=== PATIENT | male | born 1985 | race Caucasian/White ===

== ENCOUNTER 2024-07-24 10:52 | Outpatient (AMB) | payer MEDICARE, MEDICAID, SELFPAY ==
--- NOTE | 2024-07-24 11:04 | A.SPINEOV_ITS ---
Intake Visit Reasons: compression fracture Intake Note: Mr. Hawkins is here today C/o low back pain. MRI disc brought Glass Cut Off Supervisor Required: No Assessment & Plan Assessment & Plan (1) Back pain: Code(s): M54.9 - Dorsalgia, unspecified Category: Medical Plan Dear Dr Lainez, Thank you for referring Mr Hawkins to our office today. He is a very nice 39-year-old gentleman who was involved in a fall down a flight of stairs back in 2017. At the time he sustained multiple injuries and has had ongoing problems with nerve problems in his left arm since that time. He has been worked up at [facility] and his cervical spine imaging apparently did not show anything that looks surgical. He has been trying to do just pain management etc.. Along the way he was complaining of midthoracic pain and ultimately underwent an x-ray and then subsequent MRI showing a chronic healed compression fracture of T9. He was sent today for an evaluation. His midthoracic pain is present when he is standing and walking and more recently it started to bother him when he is sitting as well. He takes Tylenol as needed. No myelopathic symptoms reported in the lower extremities. He does however have upper extremity weakness in his left hand which has been present since 2017. He also reports limitations with movement of his arm as well. PMH: High cholesterol, hypertension, diabetes with an A1c of 7.2, acid reflux, surgery on his right hand. Social hx: He does not smoke, he does eat edible marijuana every day and occasionally uses alcohol Medications: Lisinopril, ropinirole, pregabalin, atorvastatin, glimepiride, omeprazole Allergies: Duloxetine Physical exam: He is awake alert oriented no acute distress, here with his today, he is able to stand up out of the examining table walk out to the hallway with normal gait, tandem gait walking reveals no instability, Romberg test negative, strength and motor examination reveals he does have weakness of his left hand in the hand grasp as well as the left triceps and to some degree the left deltoid as well. He does demonstrate hyperreflexia clonus in his ankles and Morin's sign on the left hand. Imaging review: There is a thoracic MRI done at [facility] with what appears to be a very mild anterior wedge compression fracture at T9 which is healed, no STIR imaging to suggest that it is active. No spinal cord compression seen. Impression: 39-year-old gentleman with a fall about 8 years ago or so down a flight of stairs, has had on and off thoracic pain since that time, steadily getting worse. He has a healed T9 compression fracture that is no longer acute. I am not sure how to explain his pain as the rest of his thoracic MRI looks completely normal. It could be muscular. Either way it does not need surgery and can just follow along the usual conservative treatment plan pathways such as PT, injections etc.. 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 He was deemed nonoperative at [facility] but I told him if he wants us to take a look at his cervical spine I would be happy to review it if they would like to send me a disc. Thank you for allowing us to care for your patient. The total time spent with this visit with this patient was 45 minutes reviewing history, physical exam, thoracic imaging review, and implementation of treatment plan or further diagnostic testing Bola Paula MD,PhD [facility] Coding Level of Care Code New Pt Level 4 (47908) Diagnoses Back pain M54.9
--- OUTSIDE RECORDS SUMMARY | 2024-07-24 11:48 | XMS_ITS | Encounter Summary ---
Author Organization [facility] r Address [address] [place] [address] Phone Care Team Providers Care Staying Machine Operator Name Role Phone Caitlin Mckee MD Primary Care Provider [phone] Nargis Lainez DO Unavailable [phone] Reason for Visit * Reason Onset Date Comments Medication Question 06/15/2024 Encounter Details Date Type Department Care Team (Late st Contact Info) Description 06/15/2024 Telephone Neurology [address], [place] [phone] [place] [address] Medication Question Social History Tobacco Use Types Packs/Day Years Used Date Smoking Tobacco: Never Alcohol Use Standard Drinks/Week Comments Yes 0 (1 standard drink = 0.6 oz pur e alcohol) 2 drinks per week Sex and Gender Information Value Date Recorded Sex Assigned at Male 08/30/2022 2:29 PM EDT Gender Identity Male 11/13/2022 9:24 AM EDT Sexual Orientation Straight 09/18/2023 8: 48 AM EDT documented as of this encounter Miscellaneous Notes * Telephone Encounter - Delia Moreira - 06/23/2024 10:06 AM EDT Patient Reported Reason for Call Patient presents with Medication Question Fact Finding Questions Medication name/use: pregabalin (LYRICA) 150 MG capsule Question about medication: Pharmacy is req more history of prior dosage, also ins is rejecting diclofenac-misoprostoL (ARTHROTEC 50) 50-200 mg-mcg per tablet [facility] at [phone] following up regarding medication question Confirm this is correct dose and instruction due to the high ml and times they take med a day Informed caller of advised tat * Telephone Encounter - Dulce Gomez - 06/16/2024 10:30 AM EST Patient Reported Reason for Call Patient presents with Medication Question Fact Finding Questions Medication name/use: pregabalin (LYRICA) 150 MG capsule Question about medication: Pharmacy is req more history of prior dosage, also ins is rejecting diclofenac-misoprostoL (ARTHROTEC 50) 50-200 mg-mcg per tablet [facility] pharmacy called again regarding the received prescription order for medication pregabalin (LYRICA) 150 MG capsule. The pharmacy requested additonal information about the medicatoin but hasnt heard back from the doctors office. The pharmacy checked the database and it shows the patient picked up the medication on 09/24/2022 and after that there is no record of the medication. Pharmacy would like to know if the patient was receiving the medication elsewhere. Please contact the pharmacy at [phone] (Shared the message was sent 06/15 and 48-72hr TAT per guidelines) * Telephone Encounter - Bobbi Nazario - 06/15/2024 9:58 AM EST Patient Reported Reason for Call Patient presents with Medication Question Fact Finding Questions Medication name/use: pregabalin (LYRICA) 150 MG capsule Question about medication: Pharmacy is req more history of prior dosage, also ins is rejecting diclofenac-misoprostoL (ARTHROTEC 50) 50-200 mg-mcg per tablet documented in this encounter Plan of Treatment Upcoming Encounters Date Type Department Care Team (Late st Contact Info) Description 07/31/2024 1:30 PM EDT Appointment Department of Radiology [address] [place] [address] [phone] 08/03/2024 10:50 AM EDT Office Visit Neurology [address] [facility] [address] [place] [phone] [place] [address] 10/01/2024 3:50 PM EDT Telemedicine Department of Otolaryngology 8[address] [facility] [address] [place] [phone] [place] [address] documented as of this encounter Visit Diagnoses Not on filedocumented in this encounter Care Teams Staying Machine Operator Relationship Specialty Start Date End Date Caitlin Mckee MD [address] [place] [phone] PCP - General Family Medicine 05/20/20 Nargis Lainez DO [address] [place] [phone] PCP - Insurance 02/04/23 documented as of this encounter
--- OUTSIDE RECORDS SUMMARY | 2024-07-24 11:48 | XMS_ITS | Encounter Summary ---
Author Organization [facility] r Address [address] [place] [address] Phone Care Team Providers Care Table Games Supervisor Name Role Phone Caitlin Mckee MD Primary Care Provider [phone] Nargis Lainez DO Unavailable [phone] Reason for Visit * Reason Onset Date Comments Prior Authorization 06/18/2024 diclofenac-m isoprostoL (ARTHROTEC 50) 50-200 mg- mcg per tablet and pregabalin (LYRICA) 150 MG capsule Encounter Details Date Type Department Care Team (Late st Contact Info) Description 06/18/2024 Telephone Neurology [address] [place] [address] [place] [address] Prior Authorization (diclofenac-misoprostoL (ARTHROTEC 50) 50-200 mg-mcg per tablet and /pregabalin (LYRICA) 150 MG capsule//) Social History Tobacco Use Types Packs/Day Years [...] encounter Miscellaneous Notes * Telephone Encounter - Roopa Trujilloro - 06/18/2024 2:53 PM EST Patient Reported Reason for Call Patient presents with Prior Authorization diclofenac-misoprostoL (ARTHROTEC 50) 50-200 mg-mcg per tablet and pregabalin (LYRICA) 150 MG capsule Fact Finding Questions Medication requesting: diclofenac-misoprostoL (ARTHROTEC 50) 50-200 mg-mcg per tablet and pregabalin (LYRICA) 150 MG capsule Medication insurance company: E-MEDICARE/MEDICARE A[employer]B Pharmacy Name/Location: [facility] [address] [place], [place] [address] [address] [place] [address] [place] [address], [facility] [id number] Best call back number: Fax: [phone] Permission to leave a detailed message: Yes Patient called stated Pharmacy mentioned Med diclofenac-misoprostoL (ARTHROTEC 50) 50-200 mg-mcg per tablet Prior Auth and pregabalin (LYRICA) 150 MG capsule require require history. Please reach out to patient adv resolution @ [phone] .Thank you Tat Adv documented in this encounter Plan of Treatment Upcoming Encounters Date Type Department Care Team (Late st Contact Info) Description 07/31/2024 1:30 PM EDT Appointment Department of Radiology [address] [place] [address] 08/03/2024 10:50 AM EDT Office Visit Neurology 725 [facility] [place] [phone] [place] [address] 10/01/2024 3:50 PM EDT Telemedicine Department of Otolaryngology 830 [facility] [address] [place] [phone] [place] [address] documented as of this encounter Visit Diagnoses Not on filedocumented in this encounter Care Teams Table Games Supervisor Relationship Specialty Start Date End Date Caitlin Mckee MD [address] [place] [address] PCP - General Family Medicine 05/20/20 Nargis Lainez DO [address] [place] [phone] PCP - Insurance 02/04/23 documented as of this encounter
--- OUTSIDE RECORDS SUMMARY | 2024-07-24 11:48 | XMS_ITS | Clinical Summary ---
Author Organization [facility] r Address [address] [facility] [place] [address] Phone Care Team Providers Care Finance Mgr Name Role Phone Caitlin Mckee MD Primary Care Provider [phone] Nargis Lainez DO Unavailable [phone] Allergies Active Allergy Reactions Criticality Noted Date Comments Duloxetine Other (See Comments) High 01/23/2021 Phlebitis. Blood clots in Feet Medications Medication Sig Dispensed Refills Start Date End Date Status BOTOX 100 unit injection INJECT UPTO 400 UNITS INTRAMUSCULARLY ONCE EVERY 3 MONTHS DIRECTED. 3 each 3 08/29/2021 Active hydroCHLOROthiaz patricia (HYDRODIURIL) 50 mg tablet Take 50 mg by mouth daily. Active lisinopriL (PRINIVIL;ZESTRI L) 10 mg tablet Take 10 mg by mouth daily. Active omeprazole (PRILOSEC) 10 mg capsule Take 20 mg by mouth daily. Swallow capsules whole; do not chew, break or empty contents of the capsule. Active atorvastatin (LIPITOR) 10 mg tablet Take 10 mg by mouth daily. Active sertraline (ZOLOFT) 100 mg tablet Take 150 mg by mouth in the morning. Active pregabalin (LYRICA) 100 MG capsule 1 tab PO TID PRN- may cause sedation 90 capsule 5 06/15/2022 Active pramipexole (MIRAPEX) 0.5 MG tablet Take 1 tablet (0.5 mg total) by mouth 3 (three) times a day. 90 tablet 2 12/04/2022 Active CERVICAL COLLAR Use every night for neck spasm 1 each 1 12/04/2022 Active traMADoL (ULTRAM) 50 mg tablet Take 1 tablet (50 mg total) by mouth every 6 (six) hours as needed for pain for up to 30 days. Do NOT exceed 400 mg/day. 60 tablet 02/04/2023 Active glimepiride (AMARYL) 1 MG tablet Take 1 tablet by mouth daily. 12/03/2023 Active pregabalin (LYRICA) 150 MG capsule Take 1 capsule (150 mg total) by mouth 3 (three) times a day for 30 days. 90 capsule 3 06/15/2024 Active diclofenac-misop rostoL (ARTHROTEC 50) 50-200 mg-mcg per tablet Take 1 tablet by mouth 2 (two) times a day for 90 days. 60 tablet 2 06/15/2024 Active Active Problems Problem Noted Date Diagnosed Date Cervical radiculitis 08/22/2023 Cervical dystonia 05/24/2021 Encounters Date Type Department Care Team Description 06/24/20[address] [place] [phone] Eleazar Quick MD Medication Question (Pharmacy) 06/18/20[address] [place] [phone] Eleazar Quick MD Prior Authorization (diclofenac-misoprost oL (ARTHROTEC 50) 50-200 mg-mcg per tablet and /pregabalin (LYRICA) 150 MG capsule//) 06/16/2024 Telephone [address] [place] [phone] Anamaria Jimenez CPhT Prior Authorization (Diclofenac-miSOPROSt ol 50-0.2MG dr tablets) 06/16/2024 Telephone Neurology [address] [place] [phone] Anamaria Jimenez CPhT Prior Authorization (Pregabalin 150MG capsules) 06/16/2024 Telephone [address]rology [address] [place] [phone] Eleazar Quick MD Encounter Not Needed 06/15/2024 9:50 AM EST - 06/15/2024 11:59 PM EST Hospital Encounter [facility] Care [address] [address] Eleazar Quick MD Cervical radiculopathy Discharge Disposition: Home or Self Care 06/15/2024 9:10 AM EST Office Visit Neurology [address] [place] [phone] Eleazar Quick MD Cervical radiculopathy (Primary Dx) 06/15/2024 Telephone Neurology [address] [place] [phone] Eleazar Quick MD Medication Question 06/15/2024 Telephone [address] [place] [phone] Eleazar Quick MD from Last 3 Months Immunizations Name Administration Dates Next Due Covid-19 Vaccine, ([employer]), mRNA, LNP-s, intramuscular pf injection (0.3 mL dose) 06/07/2021,01/05/2021,12/15/2020 Family History Medical History Relation Name Comments Diabetes Mellitus Father Hemochromatosis Father Diabetes Mellitus Mother Relation Name Status Comments Father Mother Social History Tobacco Use Types Packs/Day Years Used Date Smoking Tobacco: Never Tobacco Cessation:Counseling Given: Not Answered Alcohol Use Standard Drinks/Week Comments Yes 0 (1 standard drink = 0.6 oz pur e alcohol) 2 drinks per week Sex and Gender Information Value Date Recorded Sex Assigned at Male 08/30/2022 2:29 PM EDT Gender Identity Male 11/13/2022 9:24 AM EDT Sexual Orientation Straight 09/18/2023 8: 48 AM EDT Last Filed Vital Signs Vital Sign Reading Time Taken Comments Blood Pressure 160/111 06/15/2024 8:47 AM EST Pulse 115 06/15/2024 8:47 AM EST Temperature 36.7 ??C (98 ??F) 06/15/2024 8:47 AM EST Respiratory Rate 16 09/18/2023 9:20 AM EDT Oxygen Saturation 98% 06/15/2024 8:47 AM EST Inhaled Oxygen Concentration - - Weight 116.7 kg (257 lb 3.2 oz) 06/15/2024 8:47 AM EST Height 182 cm (5' 11.65 ) 12/03/2023 1:05 PM EDT Body Mass Index 35.22 12/03/2023 1:05 PM EDT Plan of Treatment Upcoming Encounters Date Type Department Care Team (Late st Contact Info) Description 07/31/2024 1:30 PM EDT Appointment Department of Radiology [address] [place] [address] 08/03/2024 10:50 AM EDT Office Visit Neurology 725 [facility] [address] [place] [phone] [place] [address] 10/01/2024 3:50 PM EDT Telemedicine Department of Otolaryngology 830 [facility] [address] [place] [phone] [place] [address] Health Maintenance Due Date Last Done Comments LIPID PANEL 1984 THRIVE SCREENING 1984 Oral Health Screen 1984 HEIP Disability Screen 1989 BEHAVIORAL HEALTH SCREEN 1996 Psych Substance Use Screen 1996 DTAP/TDAP VACCINE (1 - Tdap) 2003 Diabetes Screening 10/13/2023 10/12/2020 COVID-19 Vaccine ( season) 2023 06/07/2021, 01/05/2021, 12/15/2020 INFLUENZA VACCINE (#1) 2023 , 02/08/2022, 06/17/2020, Additional history exists Zoster Vaccine (1 of 2) 2034 Hepatitis B sAg Lifetime Screening Completed 09/23/2018 Hepatitis C Antibody Lifetime Screening Completed 09/23/2018 HIV Lifetime Screening Completed 10/12/2020, 2018 HPV VACCINES Aged Out No longer eligi ble based on patient's age to complete this topic IPV VACCINES Aged Out No longer eligi ble based on patient's age to complete this topic Pneumonia Vaccine 0-64 Aged Out No lo nger eligible based on patient's age to complete this topic ROTAVIRUS VACCINES Aged Out No longer eligible based on patient's age to complete this topic Procedures Procedure Name Priority Date/Time Associated Diagnosis Comments XR THORACIC SPINE AP AND LATERAL Routine 06/15/2024 10:00 AM EST Cervical radiculopathy HEMOGLOBIN A1C Routine 10/12/2020 10:17 AM EDT Nerve pain HIV-1/2 AG/AB INITIAL SCREENING 10/12/2020 10:17 AM EDT HEPATITIS B SURFACE ANTIGEN Routine 09/23/2018 8:47 AM EDT Procreative management HCV AB REFLEX TO CONFIRMATORY/VIRAL LOAD AND GENOTYPE Routine 09/23/2018 8:47 AM EDT Procreative management from Last 3 Months or Most Recently Relevant to Health Maintenance Results * XR Thoracic Spine, 2 Views AP and Lateral (06/15/2024 10:00 AM EST) [facility] PATIENT HEIGHT 182 GE RIS-IC [facility] PATIENT WEIGHT 116.665 GE RIS-IC Anatomical Region Laterality Modality Spine Computed Radiogr aphy 06/19/2024 11:3 6 AM EST Impressions 06/19/2024 11:38 AM EST FINDINGS/IMPRESSION: The upper thoracic spine is obscured by overlying soft tissues on lateral view. Vertebral body heights are preserved. No displaced fracture. Normal vertebral alignment. Intervertebral disc spaces are preserved. Small multilevel marginal osteophytes. Soft tissues are unremarkable. Imaged lungs are clear. I personally reviewed the study and agree with the dictated report. Electronically signed by: Lm Serrato Signed date and time: 06/19/2024 11:38 AM Narrative 06/19/2024 11:38 AM EST EXAMINATION: XR THORACIC SPINE AP AND LATERAL: 06/15/2024 10:00 AM HISTORY: mid thoracic pain following injury in past. COMPARISON: None listed. TECHNIQUE: Frontal and lateral views. Procedure Note Lm Serrato MD - 06/19/2024 EXAMINATION: XR THORACIC SPINE AP AND LATERAL: 06/15/2024 10:00 AM HISTORY: mid thoracic pain following injury in past. COMPARISON: None listed. TECHNIQUE: Frontal and lateral views. IMPRESSION: FINDINGS/IMPRESSION: The upper thoracic spine is obscured by overlying soft tissues on lateralview. Vertebral body heights are preserved. No displaced fracture. Normal vertebral alignment. Intervertebral disc spaces are preserved. Small multilevel marginalosteophytes. Soft tissues are unremarkable. Imaged lungs are clear. I personally reviewed the study and agree with the dictated report. Electronically signed by: Lm Serrato Signed date and time: 06/19/2024 11:38 AM Eleazar Quick MD IMG DIAGNOSTIC IMAG ING ORDERABLES * HIV-1/2 AG/AB Initial Screening (10/12/2020 10:17 AM EDT) HIV Ag/Ab Combined Qualitative NON-REACTI VE NON-REACT GABE 10/12/2020 2:41 PM EDT [facility] 10/12/2020 10:1 7 AM EDT 10/12/2020 10:19 AM EDT Ayana Melgar DO LAB BLOOD ORDER [facility] CLIA [id number] [address] [facility] [address] * (ABNORMAL) Hemoglobin a1c (10/12/2020 10:17 AM EDT) Hemoglobin A1C 7.3(H) 4.0 - 6.0 % 10/12/2020 2:45 PM EDT [facility] Comment:The Mendoza hemoglobi n A1c assay should not be used to diagnose or monitor diabetes in patients with altered red cell lifespan, such as homozygous hemoglobin variants, Hb SC, HbF > 5%, and hemolytic anemia. 10/12/2020 10:1 7 AM EDT 10/12/2020 10:19 AM EDT Ayana Melgar DO LAB BLOOD ORDER [facility] CLIA [id number] [address] * HCV Ab reflex to Confirmatory/Viral load and Genotype (09/23/2018 8:47 AM EDT) Hepatitis C Antibody NON-REACTI VE NON-REACTI VE 09/23/2018 10:21 AM EDT [facility] 09/23/2018 8:47 AM EDT 09/23/2018 8:49 AM EDT Laura Moyer MD LAB BLOOD ORDERABLES [facility]<9>CLIA [id number]<9>[place] [address], * HEPATITIS B SURFACE ANTIGEN (09/23/2018 8:47 AM EDT) Hep B Surface Ag NON-REACTI VE NON-REACTI VE 09/23/2018 10:21 AM EDT [facility] 09/23/2018 8:47 AM EDT 09/23/2018 8:49 AM EDT Laura Moyer MD LAB BLOOD ORDERABLES [facility]<9>CLIA [id number]<9>One [address] from Last 3 Months or Most Recently Relevant to Health Maintenance Care Teams Finance Mgr Relationship Specialty Start Date End Date Caitlin Mckee MD [address] [place] [phone] PCP - General Family Medicine 05/20/20 Nargis Lainez DO [address] [place] [phone] PCP - Insurance 02/04/23
--- OUTSIDE RECORDS SUMMARY | 2024-07-24 11:48 | XMS_ITS | Encounter Summary ---
Author Organization [facility] r Address [address] [place] [address] Phone Care Team Providers Care Edge Worker Name Role Phone Caitlin Mckee MD Unavailable [phone] Caitlin Mckee MD Primary Care Provider [phone] Janice Sloan MD Unavailable [phone] Nargis Lainez DO Unavailable [phone] Reason for Visit * Reason Onset Date Comments Medication Refill 03/19/2022 Encounter Details Date Type Department Care Team (Late st Contact Info) Description 03/19/2022 Telephone Neurology [address] [place] [address], [place] [phone] Ayana Melgar DO Medication Refill Social History Tobacco Use Types Packs/Day Years Used Date Smoking Tobacco: Never Cigarettes Alcohol Use Standard Drinks/Week Comments Yes 0 (1 standard drink = 0.6 oz pur e alcohol) 2 drinks per week Sex and Gender Information Value Date Recorded Sex Assigned at Male 08/30/2022 2:29 PM EDT Gender Identity Male 11/13/2022 9:24 AM EDT Sexual Orientation Straight 09/18/2023 8: 48 AM EDT documented as of this encounter Plan of Treatment Upcoming Encounters Date Type Department Care Team (Late st Contact Info) Description 07/31/2024 1:30 PM EDT Appointment Department of Radiology [address] [place] [phone] 08/03/2024 10:50 AM EDT Office Visit Neurology [address] [place] [address], [place] [phone] [place] [address] 10/01/2024 3:50 PM EDT Telemedicine Department of Otolaryngology [address] [place] [phone] [place] [address] documented as of this encounter Visit Diagnoses Not on filedocumented in this encounter Care Teams Edge Worker Relationship Specialty Start Date End Date Caitlin Mckee MD [address] [place] [phone] PCP - Insurance 12/12/17 08/29/22 Caitlin Mckee MD [address] [place] [phone] PCP - General Family Medicine 05/20/20 Janice Sloan MD [address] [place] [phone] PCP - Insurance 08/30/22 02/03/23 Nargis Lainez DO [address] [place] [phone] PCP - Insurance 02/04/23 documented as of this encounter
--- OUTSIDE RECORDS SUMMARY | 2024-07-24 11:48 | XMS_ITS | Referral Summary ---
Author Organization [facility] r Address 1 [place] [address] Phone Care Team Providers Care Clinical Support Specialist Name Role Phone Caitlin Mckee MD Primary Care Provider [phone] Nargis Lainez DO Unavailable [phone] Encounters Date Type Department Care Team Description 06/24/2024 Telephone [address] [place] [address] [phone] Eleazar Quick MD Medication Question (Pharmacy) 06/18/2024 Telephone [address] [place] [address] [phone] Eleazar Quick MD Prior Authorization (diclofenac-misoprost oL (ARTHROTEC 50) 50-200 mg-mcg per tablet and /pregabalin (LYRICA) 150 MG capsule//) 06/16/2024 Telephone Neurology [address] [place] [address] [phone] Anamaria Jimenez CPhT Prior Authorization (Diclofenac-miSOPROSt ol 50-0.2MG dr tablets) 06/16/2024 Telephone Neurology [address] [place] [address] [phone] Anamaria Jimenez CPhT Prior Authorization (Pregabalin 150MG capsules) 06/16/2024 Telephone Neurology [address] [place] [address] [phone] Eleazar Quick MD Encounter Not Needed 06/15/2024 Telephone Neurology [address] [place] [phone] Eleazar Quick MD Medication Question 06/15/2024 Telephone Neurology [address] [place] [phone] Eleazar Quick MD 06/15/2024 9:50 AM EST - 06/15/2024 11:59 PM EST Hospital Encounter [facility] [address] [address] Eleazar Quick MD Cervical radiculopathy Discharge Disposition: Home or Self Care 06/15/2024 9:10 AM EST Office Visit Neurology [address] [place] [phone] Eleazar Quick MD Cervical radiculopathy (Primary Dx) from Last 3 Months Allergies Active Allergy Reactions Criticality Noted Date [...] Date Cervical radiculitis 08/22/2023 Cervical dystonia 05/24/2021 Immunizations Name Administration Dates Next Due Covid-19 Vaccine, (Surefire Social), mRNA, LNP-s, intramuscular pf injection (0.3 mL dose) 06/07/2021,01/05/2021,12/15/2020 Social History Tobacco Use Types Packs/Day Years [...] PM EDT Appointment Department of Radiology [address] [place] [address] 08/03/2024 10:50 AM EDT Office Visit Neurology [address] [facility], [place] [phone] [place] [address] 10/01/2024 3:50 PM EDT Telemedicine Department of Otolaryngology [address] [facility] [address] [place] [phone] [place] [address] Procedures Procedure Name Priority Date/Time Associated Diagnosis [...] AP and Lateral (06/15/2024 10:00 AM EST) [facility] PATIENT HEIGHT 182 GE RIS-IC [facility] PATIENT WEIGHT 116.665 GE RIS-IC Anatomical Region [...] VE NON-REACT GABE 10/12/2020 2:41 PM EDT [facility] 10/12/2020 10:1 7 AM EDT 10/12/2020 10:19 AM EDT Ayana Melgar DO LAB BLOOD ORDER JOVANNA [facility] CLIA [id number] [place] [address], * (ABNORMAL) Hemoglobin a1c (10/12/2020 10:17 AM EDT) Hemoglobin A1C 7.3(H) 4.0 - 6.0 % 10/12/2020 2:45 PM EDT [facility]via Comment:The Mendoza hemoglobi n A1c assay should not be used to diagnose or monitor diabetes in patients with altered red cell lifespan, such as homozygous hemoglobin variants, Hb SC, HbF > 5%, and hemolytic anemia. 10/12/2020 10:1 7 AM EDT 10/12/2020 10:19 AM EDT Ayana Melgar DO LAB BLOOD ORDER JOVANNA Performing Organization Address [facility]/ZIP Co de Phone Number [facility] CLIA [id number] [place] [address], * HCV Ab reflex to Confirmatory/Viral load and Genotype (09/23/2018 8:47 AM EDT) Pathologist [facility] [place] Hepatitis C Antibody NON-REACTI VE NON-REACTI VE 09/23/2018 10:21 AM EDT [facility]via 09/23/2018 8:47 AM EDT 09/23/2018 8:49 AM EDT Laura Moyer MD LAB BLOOD ORDERABLES Performing Organization Address [facility]/ZIP Co de Phone Number [facility]<9>CLIA [id number]<9>[place] [address], [place] * HEPATITIS B SURFACE ANTIGEN (09/23/2018 8:47 AM EDT) Hep B Surface Ag NON-REACTI VE NON-REACTI VE 09/23/2018 10:21 AM EDT [facility] 09/23/2018 8:47 AM EDT 09/23/2018 8:49 AM EDT Laura Moyer MD LAB BLOOD ORDERABLES [facility]<9>CLIA [id number]<9>[address] [facility] [address] from Last 3 Months or Most Recently Relevant to Health Maintenance Care Teams Clinical Support Specialist Relationship Specialty Start Date End Date Caitlin Mckee MD [address] [place] [phone] PCP - General Family Medicine 05/20/20 Nargis Lainez DO [address] [place] [phone] PCP - Insurance 02/04/23
--- OUTSIDE RECORDS SUMMARY | 2024-07-24 11:48 | XMS_ITS | Encounter Summary ---
Author Organization [facility] r Address 1 [place] [address] Phone Care Team Providers Care Wide Area Network Administrator Name Role Phone Caitlin Mckee MD Unavailable Caitlin Mckee MD Primary Care Provider [phone] Janice Sloan MD Unavailable [phone] Nargis Lainez DO Unavailable [phone] Encounter Details Date Type Department Care Team (Late st Contact Info) Description 09/05/2021 Documentation [facility] DEPARTMENT [address] [place] [address] Onbase, Scan Social History Tobacco Use Types Packs/Day Years [...] PM EDT Appointment Department of Radiology [address] [place] [address] 08/03/2024 10:50 AM EDT Office Visit Neurology [address] [place] [address] [place] [phone] [place] [address] 10/01/2024 3:50 PM EDT Telemedicine Department of Otolaryngology [address] [place] [phone] Judy Odonnell MD [address] [facility] [place] [address] documented as of this encounter Visit Diagnoses Not on filedocumented in this encounter Care Teams Wide Area Network Administrator Relationship Specialty Start Date End Date Caitlin Mckee MD [address] [place] [phone] PCP - Insurance 12/12/17 08/29/22 Caitlin Mckee MD [address] [place] [address] PCP - General Family Medicine 05/20/20 Janice Sloan MD [address] [place] [phone] PCP - Insurance 08/30/22 02/03/23 Nargis Lainez DO [address] [place] [phone] PCP - Insurance 02/04/23 documented as of this encounter
--- OUTSIDE RECORDS SUMMARY | 2024-07-24 11:48 | XMS_ITS | Encounter Summary ---
Author Organization [facility] r Address 1 [place] [address] Phone Care Team Providers Care Splitting Machine Operator Name Role Phone Caitlin Mckee MD Unavailable [phone] Caitlin Mckee MD Primary Care Provider Janice Sloan MD Unavailable [phone] Nargis Lainez DO Unavailable [phone] Reason for Visit * Reason Comments Automated Refill Request Encounter Details Date Type Department Care Team (Late st Contact Info) Description 03/19/2022 Refill Neurology [address], [place] [address] Ayana Melgar DO Social History Tobacco Use Types Packs/Day Years [...] 1:30 PM EDT Appointment Department of Radiology 0 [place] [address] 08/03/2024 10:50 AM EDT Office Visit Neurology [address], [place] [address] [place] [address] 10/01/2024 3:50 PM EDT Telemedicine Department of Otolaryngology [address] [place] [phone] [place] [address] documented as of this encounter Visit Diagnoses Not on filedocumented in this encounter Care Teams Splitting Machine Operator Relationship Specialty Start Date End Date Caitlin Mckee MD [address] [place] [phone] PCP - Insurance 12/12/17 08/29/22 Caitlin Mckee MD [address] [place] [phone] PCP - General Family Medicine 05/20/20 Janice Sloan MD [address] [place] [phone] PCP - Insurance 08/30/22 02/03/23 Nargis Lainez DO [address] [place] [phone] PCP - Insurance 02/04/23 documented as of this encounter
--- OUTSIDE RECORDS SUMMARY | 2024-07-24 11:48 | XMS_ITS | Encounter Summary ---
Author Organization [facility] r Address 1 [place] [address] Phone Care Team Providers Care Community Service Officer Name Role Phone Caitlin Mckee MD Primary Care Provider [phone] Nargis Lainez DO Unavailable [phone] Encounter Details Date Type Department Care Team (Late st Contact Info) Description 06/15/2024 Telephone Neurology [address], [place] [phone] [place] [address] Social History Tobacco Use Types Packs/Day Years [...] 1:30 PM EDT Appointment Department of Radiology [address] [place] [address] 08/03/2024 10:50 AM EDT Office Visit Neurology [address], [place] [phone] [place] [address] 10/01/2024 3:50 PM EDT Telemedicine Department of Otolaryngology [address] [place] [phone] [place] [address] documented as of this encounter Visit Diagnoses Not on filedocumented in this encounter Care Teams Community Service Officer Relationship Specialty Start Date End Date Caitlin Mckee MD 16 [place] [phone] PCP - General Family Medicine 05/20/20 Nargis Lainez DO [address] [place] [phone] PCP - Insurance 02/04/23 documented as of this encounter
--- OUTSIDE RECORDS SUMMARY | 2024-07-24 11:49 | XMS_ITS | Encounter Summary ---
Author Organization [facility] r Address [address] [facility] [place] [address] Phone Care Team Providers Care Lathe Sander Name Role Phone Caitlin Mckee MD Unavailable [phone] Caitlin Mckee MD Primary Care Provider [phone] Janice Sloan MD Unavailable [phone] Nargis Lainez DO Unavailable [phone] Reason for Visit * Reason Onset Date Comments Medication Refill 06/06/2022 Encounter Details Date Type Department Care Team (Late st Contact Info) Description 06/06/2022 Refill Neurology [address], [place] [address] Ayana Melgar DO Social History [...] Orientation Straight 09/18/2023 8: 48 AM EDT COVID-19 Exposure Response Date Recorded In the last 10 days, have yo u been in contact with someone who was confirmed or suspected to have Coronavirus/COVID-19? No / Unsure 05/11/2022 7:01 AM EST documented as of this encounter Miscellaneous Notes * Telephone Encounter - Bola Landin MD - 06/12/2022 4:56 PM EST See movement group for dystonia botox. thanks * Telephone Encounter - Jennifer Canales RN - 06/12/2022 8:18 AM EST Patient's last office visit: 05/11/22 Scheduled appointment: 06/25/22 Will forward to provider for review. Per last visit note -Referral to Dr. Landin in the pain division for potential other interventions and/or medication management. documented in this encounter Plan of Treatment Upcoming Encounters Date Type Department Care Team (Late st Contact Info) Description 07/31/2024 1:30 PM EDT Appointment Department of Radiology [address] [place] [address] 08/03/2024 10:50 AM EDT Office Visit Neurology 725 [facility] [place] [phone] [place] [address] 10/01/2024 3:50 PM EDT Telemedicine Department of Otolaryngology 830 [facility] 1400 [place] [phone] [place] [address] documented as of this encounter Visit Diagnoses Not on filedocumented in this encounter Care Teams Lathe Sander Relationship Specialty Start Date End Date Caitlin Mckee MD [address] [place] [phone] PCP - Insurance 12/12/17 08/29/22 Caitlin Mckee MD [address] [place] [phone] PCP - General Family Medicine 05/20/20 Janice Sloan MD [address] [place] [phone] PCP - Insurance 08/30/22 02/03/23 Nargis Lainez DO [address] [place] [phone] PCP - Insurance 02/04/23 documented as of this encounter
--- OUTSIDE RECORDS SUMMARY | 2024-07-24 11:49 | XMS_ITS | Encounter Summary ---
Author Organization [facility] r Address [address] [facility] [place] [address] Phone Care Team Providers Care Buckle Wire Inserter Name Role Phone Caitlin Mckee MD Unavailable [phone] Caitlin Mckee MD Primary Care Provider [phone] Janice Sloan MD Unavailable [phone] Nargis Lainez DO Unavailable [phone] Reason for Visit * Reason Onset Date Comments Results 05/11/2021 Encounter Details Date Type Department Care Team (Late st Contact Info) Description 05/11/2021 Telephone Neurology [address] [place] [address] Ayana Melgar DO Results Social History Tobacco Use Types Packs/Day Years [...] encounter Miscellaneous Notes * Telephone Encounter - Kar BarksdaleBarbara - 05/11/2021 11:43 AM EST Patient Reported Reason for Call Patient presents with ??? Results Pt reached out via [employer]hart to Dr. Melgar 03/20/21 and has yet to rcv a call back or msg back. Below is attached rqst from pt on 03/20/21: Good Evening Dr. Elizabeth, I am writing to you in regards to our last conversation on January 23, 2021. We had discussed my test results & options for the pain in my neck and shoulder. Where we concluded that you would putin a request for a Botox injection for cervical dystonia. It's been almost??2 months, several phonecalls, and messages and I have not heard anything back from you or your office. I would appreciate i t if you would get back to me in 48 hours. I also requested that you please send the report of my test results so I can begin the process for disability. If you have any questions or concerns please contact me at . Regards, Yeyo Hawkins Please call back as soon as possible @[phone] - Pt would like a call back be fore upcoming appt as she has been patiently waiting. Put a separate request for Botox injection. documented in this encounter Plan of Treatment Upcoming Encounters Date Type Department Care Team (Late st Contact Info) Description 07/31/2024 1:30 PM EDT Appointment Department of Radiology [address] [place] [address] 08/03/2024 10:50 AM EDT Office Visit Neurology [address] [place], [place] [address] [phone] [place] [address] 10/01/2024 3:50 PM EDT Telemedicine Department of Otolaryngology 830 [facility] [place] 1400 [place] [phone] [place] [address] documented as of this encounter Visit Diagnoses Not on filedocumented in this encounter Care Teams Buckle Wire Inserter Relationship Specialty Start Date End Date Caitlin Mckee MD [address] [place] [phone] PCP - Insurance 12/12/17 08/29/22 Caitlin Mckee MD [address] [place] [phone] PCP - General Family Medicine 05/20/20 Janice Sloan MD [address] [place] [phone] PCP - Insurance 08/30/22 02/03/23 Nargis Lainez DO [address] [place] [phone] PCP - Insurance 02/04/23 documented as of this encounter
--- OUTSIDE RECORDS SUMMARY | 2024-07-24 11:49 | XMS_ITS | Encounter Summary ---
Author Organization [facility] r Address [address] [facility] [address] Phone Care Team Providers Care Senior Contracts Administrator Name Role Phone Caitlin Mckee MD Unavailable [phone] Caitlin Mckee MD Primary Care Provider [phone] Janice Sloan MD Unavailable [phone] Nargis Lainez DO Unavailable [phone] Reason for Visit * Reason Onset Date Comments Appointment 10/11/2020 Encounter Details Date Type Department Care Team (Late st Contact Info) Description 10/11/2020 Telephone Neurology [address] [place] [address] Ayana Melgar DO Appointment Social History Tobacco Use Types Packs/Day Years [...] Exposure Response Date Recorded In the last month, have you been in contact with someone who was confirmed or suspected to have Coronavirus / COVID-19? No / Unsure 09/26/2020 2:09 PM EDT documented as of this encounter Miscellaneous Notes * Telephone Encounter - Ron Gilbert - 10/12/2020 9:15 AM EDT Patient Reported Reason for Call Patient presents with ??? Appointment Message forwarded to Jaswinder EMG Coordinator. Patient contacted for scheduling * Telephone Encounter - Kai Lopez - 10/11/2020 4:27 PM EDT Patient Reported Reason for Call Patient presents with ??? Appointment Patient advised to request jaswinder; digital traffic coordinator for placement of new emg Please contact to confirm TAT 24-48 hrs documented in this encounter Plan of Treatment Upcoming Encounters Date Type Department Care Team (Late st Contact Info) Description 07/31/2024 1:30 PM EDT Appointment Department of Radiology [address] [place] [address] 08/03/2024 10:50 AM EDT Office Visit Neurology 725 [facility] [place] [phone] [place] [address] 10/01/2024 3:50 PM EDT Telemedicine Department of Otolaryngology 830 [facility] 1400 [place] [phone] [place] [address] documented as of this encounter Visit Diagnoses Not on filedocumented in this encounter Care Teams Senior Contracts Administrator Relationship Specialty Start Date End Date Caitlin Mckee MD 16 [place] [phone] PCP - Insurance 12/12/17 08/29/22 Caitlin Mckee MD [address] [place] [phone] PCP - General Family Medicine 05/20/20 Janice Sloan MD [address] [place] [phone] PCP - Insurance 08/30/22 02/03/23 Nargis Lainez DO [address] [place] [phone] PCP - Insurance 02/04/23 documented as of this encounter
--- OUTSIDE RECORDS SUMMARY | 2024-07-24 11:49 | XMS_ITS | Encounter Summary ---
Author Organization [facility] r Address 1 [place] [address] Phone Care Team Providers Care Generation Engineer Name Role Phone Caitlin Mckee MD Unavailable [phone] Caitlin Mckee MD Primary Care Provider [phone] Janice Sloan MD Unavailable [phone] Nargis Lainez DO Unavailable [phone] Reason for Visit * Reason Onset Date Comments Appointment 05/03/2022 Encounter Details Date Type Department Care Team (Late st Contact Info) Description 05/03/2022 Telephone Neurology [address] [place] [phone] [place] [address] Appointment Social History Tobacco Use Types Packs/Day [...] 1:30 PM EDT Appointment Department of Radiology [address] [place] [address] 08/03/2024 10:50 AM EDT Office Visit Neurology 725 [facility] [place] [phone] [place]azar [place] [address] 10/01/2024 3:50 PM EDT Telemedicine Department of Otolaryngology [address] [place] [phone] [place] [address] documented as of this encounter Visit Diagnoses Not on filedocumented in this encounter Care Teams Generation Engineer Relationship Specialty Start Date End Date Caitlin Mckee MD [address] [place] [phone] PCP - Insurance 12/12/17 08/29/22 Caitlin Mckee MD [address] [place] [phone] PCP - General Family Medicine 05/20/20 Janice Sloan MD [address] [place] [phone] PCP - Insurance 08/30/22 02/03/23 Nargis Lainez DO [address] [place] [phone] PCP - Insurance 02/04/23 documented as of this encounter
--- OUTSIDE RECORDS SUMMARY | 2024-07-24 11:49 | XMS_ITS | Encounter Summary ---
Author Organization [facility] r Address [address] [facility] [place] [address] Phone Care Team Providers Care Television Antenna Installer Name Role Phone Caitlin Mckee MD Unavailable [phone] Caitlin Mckee MD Primary Care Provider [phone] Janice Sloan MD Unavailable Nargis Lainez DO Unavailable [phone] Reason for Visit * Reason Onset Date Comments Botulinum Toxin Injection 05/18/2021 Encounter Details Date Type Department Care Team (Late st Contact Info) Description 05/18/2021 Telephone Neurology [address] [place] [address] Ayana Melgar DO Botulinum Toxin Injection Social History Tobacco Use Types Packs/Day Years [...] encounter Miscellaneous Notes * Telephone Encounter - Huy Crow - 05/18/2021 4:59 PM EST Patient Reported Reason for Call Patient presents with ??? Botulinum Toxin Injection Patient called looking for a call back, Missed call from clinic patient is trying to have a botox injection [phone] documented in this encounter Plan of Treatment Upcoming Encounters Date Type Department Care Team (Late st Contact Info) Description 07/31/2024 1:30 PM EDT Appointment Department of Radiology [address]40 [place] [address] 08/03/2024 10:50 AM EDT Office Visit Neurology 725 [facility] [address] [address] [place] [address] 10/01/2024 3:50 PM EDT Telemedicine Department of Otolaryngology 830 [facility] 1400 [place] [phone] [place] [address] documented as of this encounter Visit Diagnoses Not on filedocumented in this encounter Care Teams Television Antenna Installer Relationship Specialty Start Date End Date Caitlin Mckee MD [address] [place] [phone] PCP - Insurance 12/12/17 08/29/22 Caitlin Mckee MD [address] [place] [phone] PCP - General Family Medicine 05/20/20 Janice Sloan MD [address] [place] [phone] PCP - Insurance 08/30/22 02/03/23 Nargis Lainez DO [address] [place] [phone] PCP - Insurance 02/04/23 documented as of this encounter
--- OUTSIDE RECORDS SUMMARY | 2024-07-24 11:49 | XMS_ITS | Encounter Summary ---
Author Organization [facility] r Address 1 [place] [address] Phone Care Team Providers Care Compliance Auditor Name Role Phone Caitlin Mckee MD Unavailable [phone] Caitlin Mckee MD Primary Care Provider [phone] Janice Sloan MD Unavailable [phone] Nargis Lainez DO Unavailable [phone] Reason for Visit * Reason Onset Date Comments Appointment 03/22/2022 Encounter Details Date Type Department Care Team (Late st Contact Info) Description 03/22/2022 Telephone Neurology [address] [place], [place] [address] [phone] [place] [address] Appointment Social History Tobacco Use Types Packs/Day [...] encounter Miscellaneous Notes * Telephone Encounter - Myrna Agee - 03/22/2022 2:29 PM EST Patient Reported Reason for Call Patient presents with ??? Appointment Patient had a Telemedicine visit eith doctor Urvashi today and was transferred to book a follow up for 07/21/2022 in person visit. Doctor has no template at all please return call and schedule per doctor thank you. documented in this encounter Plan of Treatment Upcoming Encounters Date Type Department Care Team (Late st Contact Info) Description 07/31/2024 1:30 PM EDT Appointment Department of Radiology 840 [place] [address] 08/03/2024 10:50 AM EDT Office Visit Neurology 725 [facility], [place] [phone] [place] [address] 10/01/2024 3:50 PM EDT Telemedicine Department of Otolaryngology 830 [facility] [address] [place] [phone] [place] [address] documented as of this encounter Visit Diagnoses Not on filedocumented in this encounter Care Teams Compliance Auditor Relationship Specialty Start Date End Date Caitlin Mckee MD [address] [place] [phone] PCP - Insurance 12/12/17 08/29/22 Caitlin Mckee MD [address] [place] [phone] PCP - General Family Medicine 05/20/20 Janice Sloan MD [address] [place] [phone] PCP - Insurance 08/30/22 02/03/23 Nargis Lainez DO 16 [place] [phone] PCP - Insurance 02/04/23 documented as of this encounter
--- OUTSIDE RECORDS SUMMARY | 2024-07-24 11:49 | XMS_ITS | Encounter Summary ---
Author Organization [facility] r Address [address] [place] [address] Phone Care Team Providers Care Physician Coder Name Role Phone Caitlin Mckee MD Primary Care Provider [phone] Nargis Lainez DO Unavailable [phone] Encounter Details Date Type Department Care Team (Late st Contact Info) Description 11/14/2023 Orders Only Neurosurgery [address], [place] [address] Darren, Betelihem Pain of left hand Social History Tobacco Use Types Packs/Day Years [...] PM EDT Appointment Department of Radiology [address] [place] [address] 08/03/2024 10:50 AM EDT Office Visit Neurology 7[address] [facility] [address], [place] [phone] [place] [address] 10/01/2024 3:50 PM EDT Telemedicine Department of Otolaryngology [address] [place] [address] [place] [address] documented as of this encounter Visit Diagnoses Diagnosis Pain of left hand documented in this encounter Care Teams Physician Coder Relationship Specialty Start Date End Date Caitlin Mckee MD [address] [place] [address] PCP - General Family Medicine 05/20/20 Nargis Lainez DO [address] [place] [phone] PCP - Insurance 02/04/23 documented as of this encounter
--- OUTSIDE RECORDS SUMMARY | 2024-07-24 11:49 | XMS_ITS | Encounter Summary ---
Author Organization [facility] r Address [address] [place] [address] Phone Care Team Providers Care Ball Mill Mixer Name Role Phone Caitlin Mckee MD Unavailable [phone] Caitlin Mckee MD Primary Care Provider [phone] Janice Sloan MD Unavailable [phone] Nargis Lainez DO Unavailable Reason for Visit * Reason Onset Date Comments Other Clinical 05/18/2022 Yesenia flores called to update the Clinic regarding denier decison made Encounter Details Date Type Department Care Team ([facility] st Contact Info) Description 05/18/2022 Telephone Neurology [address] [place] [phone] [place] [address] Other Clinical (Yesenia Tristan called to update the Clinic regarding denier decison made ) Social History Tobacco Use Types Packs/Day Years [...] Miscellaneous Notes * Telephone Encounter - Roopa Banegas - 05/18/2022 12:47 PM EST Patient Reported Reason for Call Patient presents with ??? Other Clinical Yesenia from [facility] called to update the Clinic regarding elaina tsai made Fact Finding Questions Reason for call comments field updated: Yes Yesenia stated information received was insufficient to approve Patient for CPT Code 10501 , Case Reference # [id number] . Call # [phone] optn 3 documented in this encounter Plan of Treatment Upcoming Encounters Date Type Department Care Team (Late st Contact Info) Description 07/31/2024 1:30 PM EDT Appointment Department of Radiology [address] [place] [address] 08/03/2024 10:50 AM EDT Office Visit Neurology 725 [facility] [address] [place] [phone] [place] [address] 10/01/2024 3:50 PM EDT Telemedicine Department of Otolaryngology 8[address] [facility] [address] [place] [phone] [place] [address] documented as of this encounter Visit Diagnoses Not on filedocumented in this encounter Care Teams Ball Mill Mixer Relationship Specialty Start Date End Date Caitlin Mckee MD [address] [place] [phone] PCP - Insurance 12/12/17 08/29/22 Caitlin Mckee MD [address] [place] [phone] PCP - General Family Medicine 05/20/20 Janice Sloan MD [address] [place] [phone] PCP - Insurance 08/30/22 02/03/23 Nargis Lainez DO [address] [place] [phone] PCP - Insurance 02/04/23 documented as of this encounter
--- OUTSIDE RECORDS SUMMARY | 2024-07-24 11:49 | XMS_ITS | Encounter Summary ---
Author Organization [facility] r Address [address] [place] [address] Phone Care Team Providers Care Parcel Carrier Name Role Phone Caitlin Mckee MD Unavailable [phone] Caitlin Mckee MD Primary Care Provider [phone] Janice Sloan MD Unavailable [phone] Nargis Lainez DO Unavailable [phone] Reason for Visit * Reason Onset Date Comments Other 04/20/2020 Lab Results Encounter Details Date Type Department Care Team (Late st Contact Info) Description 04/20/2020 Telephone Podiatry [address] [place] [phone] Darwin Dave MD [address] [place] [address] Other (Lab Results) Social History Tobacco Use Types Packs/Day Years Used Date Smoking Tobacco: Never Assessed Sex and Gender Information Value Date Recorded Sex Assigned at Male 08/30/2022 2:29 PM EDT Gender Identity Male 11/13/2022 9:24 AM EDT Sexual Orientation Straight 09/18/2023 8: 48 AM EDT documented as of this encounter Miscellaneous Notes * Telephone Encounter - Maine Guzman NP - 04/21/2020 8:44 AM EST Called patient to review uric acid level, however he did not answer so I left a voicemail to call back to review * Telephone Encounter - Keisha Miles - 04/20/2020 12:27 PM EST Patient Reported Reason for Call Patient presents with ??? Other Lab Results Pt called in because says ACTIVITIES THERAPIST was supposed to call last week to go review lab results of pt bests call back is [phone] documented in this encounter Plan of Treatment Upcoming Encounters Date Type Department Care Team (Late st Contact Info) Description 07/31/2024 1:30 PM EDT Appointment Department of Radiology [address] [place] [address] 08/03/2024 10:50 AM EDT Office Visit Neurology 725 [facility] [address], [place] [phone] [place] [address] 10/01/2024 3:50 PM EDT Telemedicine Department of Otolaryngology 830 [facility] [address] [place] [phone] [place] [address] documented as of this encounter Visit Diagnoses Not on filedocumented in this encounter Care Teams Parcel Carrier Relationship Specialty Start Date End Date Caitlin Mckee MD [address] [place] [phone] PCP - Insurance 12/12/17 08/29/22 Caitlin Mckee MD [address] [place] [phone] PCP - General Family Medicine 05/20/20 Janice Sloan MD [address] [place] [phone] PCP - Insurance 08/30/22 02/03/23 Nargis Lainez DO [address] [place] [phone] PCP - Insurance 02/04/23 documented as of this encounter
--- OUTSIDE RECORDS SUMMARY | 2024-07-24 11:49 | XMS_ITS | Referral Summary ---
Author Organization [facility] Address [address] [place] [address] Care Team Providers Care Doctor Of Pharmacy Name Role Phone Nargis Lainez Primary Care Provider [phone] Allergies Active Allergy Reactions Criticality Noted Date Comments Duloxetine Other (see comments) 01/26/2024 Blood blisters Medications cyclobenzaprine (FLEXERIL) 10 mg tablet take 1 tablet by mouth three times a day if needed for NECK PAIN. 0 02/27/2017 Active ibuprofen (MOTRIN) 800 mg tablet take 1 tablet by mouth three times a day for 10 days 0 12/29/2016 Active naproxen (NAPROSYN) 500 mg tablet Take 500 mg by mouth. 0 02/06/2017 Active hydroCHLOROthia zide (HYDRODIURIL) 25 mg tablet Take 25 mg by mouth once a day. 12/01/2020 Active omeprazole (PriLOSEC) 20 mg capsule Take 20 mg by mouth once a day. 09/12/[address] (CYMBALTA) 20 mg capsule Take 20 mg by mouth once a day. 10/10/2020 Active amitriptyline (ELAVIL) 25 mg tablet Take 25 mg by mouth once a day. 04/13/2020 Active predniSONE (DELTASONE) 10 mg tabletIndicatio ns:Leukocytocla stic vasculitis (HCC) Take 6 tabs for 3 days, then 5 tabs for 3 days, then 4 tabs for 3 days, then 3 tabs for 3 days, then 2 tabs for 3 days, then 1 tab for 3 days. Dispense 63 tablets. 63 tablet 12/13/2020 Active Active Problems No known active problems Social History Tobacco Use Types Packs/Day Years Used Date Smoking Tobacco: Never Smokeless Tobacco: Never Alcohol Use Standard Drinks/Week Comments Yes 3 (1 standard drink = 0.6 oz pur e alcohol) Sex and Gender Information Value Date Recorded Sex Assigned at Male 12/12/2020 1:30 PM EDT Legal Sex Male 7:12 PM EDT Gender Identity Male 12/12/2020 1:30 PM EDT Sexual Orientation Straight 12/12/2020 1: 30 PM EDT Last Filed Vital Signs Vital Sign Reading Time Taken Comments Blood Pressure 136/87 01/26/2024 3:20 PM EDT Pulse 113 01/26/2024 3:20 PM EDT Temperature 36.8 ??C (98.2 ??F) 01/26/2024 3:20 PM ED T Respiratory Rate - - Oxygen Saturation 95% 01/26/2024 3:20 PM EDT Inhaled Oxygen Concentration - - Weight 124.7 kg (275 lb) 03/19/2017 1:55 PM EST Height 182.9 cm (6') 03/19/2017 1:55 PM EST Body Mass Index 37.3 03/19/2017 1:55 PM EST Plan of Treatment Not on file Insurance MEDICARE [facility] Care Teams Doctor Of Pharmacy Relationship Specialty Start Date End Date Nargis Lainez DO [address] [place], [place] [address], [place] [phone] PCP - General Family Medicine 01/26/24
--- OUTSIDE RECORDS SUMMARY | 2024-07-24 11:49 | XMS_ITS | Data Portability ---
Author Organization [facility], [employer] - [facility] Address [address] [place] [address] Care Team Providers Care Dye Stand Loader Name Role Phone NARGIS CASTELLANOS Primary Care Provider [phone] NARGIS CASTELLANOS Referring Provider [phone] Assessment No assessment recorded. Plan of Treatment Reminders Order Date Submit Date Provider Last Modified By Organization Details Last Modified Time Details Appointments PCP-Offic e Visit-15 Min 2024 09:30A Olive Castellanos, DO Not available Not available Not available Lab tb (M tuberculo sis), ifn-gamma orin, blood [address] Patient Reg, [address] [place], [address], 10/02/2019 08:14:43 hepatitis B surface Ab, qualitati ve, serum 2019 020 [facility] Patient Reg, [address] [place], [address], 09/25/2019 18:18:55 drug of abuse panel, urine - chain of custody - 10 drug screen 2019 020 [facility] Patient Reg, [address] [place], [address], 09/26/2019 12:06:38 Referral None recorded. Procedures None recorded. Surgeries None recorded. Imaging None recorded. Medication Orders None recorded. Patient TargetsNo targets recorded. Patient Instructions Encounter Date Encounter Id Patient Instructions Last Modified By Organization Details Last Modified Time 09/25/2019 [id number] ishihara's test for color deficiency* [email or web address] Not available 09/25/2019 12:57:07 Reason for Referral None Reported. Results Created Date Observation Date Name Description Value Unit Range Abnormal Flag Note LastModifiedBy Organization Detail LastModifiedTime 09/25/19 20 09/25/2019 ishih lady's test for color defic iency * Score: Pass Not Available [facility] [address] [facility] [address], [place], [address], 09/25/2019 12:45:30 09/25/19 20 09/25/2019 ishih lady's test for color defic iency * Notes: 09/18 Not Available [facility] [address] [facility] [address], [place], [address], 09/25/2019 12:45:30 09/25/19 20 09/25/2019 drug scree n, urine drugs abuse scr SEE REFERE NCE LAB normal Not Available [facility] [address] [place], [address], 09/25/2019 15:41:55 09/25/19 20 09/25/2019 hepat itis B surfa ce Ab, quali tativ e, serum hep B surf Ab 113.9 mIU/m L normal REACT GABE This patie nt is consi dered immun e to Hepat itis B virus Not Available [facility] [address] [place], [address], 09/25/2019 18:18:55 09/25/19 20 09/28/2019 Mycob acter ium tuber culos is stimu lated gamma inter feron , qual, blood qferon criteria Commen t . normal The Quant iFERO N-TB Gold Plus resul t is deter mined by subtr actin g the Nil value from eithe r TB antig en (Ag) tube. The mitog en tube serve s as a contr ol for the test. Not Available [facility] [address] [place], [address], 09/28/2019 19:06:09 09/25/19 20 09/28/2019 Mycob acter ium tuber culos is stimu lated gamma inter feron , qual, blood qf TB1 Ag value 0.13 IU/mL . normal Not Available [facility] [address] [place], [address], 09/28/2019 19:06:09 09/25/19 20 09/28/2019 Mycob acter ium tuber culos is stimu lated gamma inter feron , qual, blood qf TB2 Ag value 0.15 IU/mL . normal Not Available [facility] [address] [place], [address], 09/28/2019 19:06:09 09/25/19 20 09/28/2019 Mycob acter ium tuber culos is stimu lated gamma inter feron , qual, blood qferon nil krissy 0.12 IU/mL . normal Not Available [facility] [address] [place], [address], 09/28/2019 19:06:09 09/25/19 20 09/28/2019 Mycob acter ium tuber culos is stimu lated gamma inter feron , qual, blood qferon moustapha krissy >10.00 IU/mL . normal Not Available [facility] [address] [place], [address], 09/28/2019 19:06:09 09/25/19 20 09/28/2019 Mycob acter ium tuber culos is stimu lated gamma inter feron , qual, blood interpretati on: Negati ve negati ve normal The speci men recei cely for Quant iFERO N testi ng was incub ated by the order ing insti tutio n. Speci fic proce dures outli ting in our Direc tory of Servi karen and in the packa inser t for the Quant iFERO N Gold (In Tube) test must be follo wed to enabl e for prope r stimu latio n of cells for the produ ction of inter feron gamma . Perfo rmed at: RN - [facility] [place] [address], [place] [address] Lab Direc tor: Audrey Christian MD, Phone : [phone] Not Available [facility] [address] [place], [address], 09/28/2019 19:06:09 09/29/19 20 09/29/2019 rubel la Ab, serum rubella 54.4 IU/mL normal React gabe: >= 10 IU/mL Not Available [facility] [address] [place], [address], 09/29/2019 12:42:36 09/29/19 20 09/30/2019 mumps virus IgG Ab, quant , immun oassa y, serum mumps abs IgG 36.9 AU/mL immune >10.9 normal Negat gabe <9.0 Equiv ocal 9.0 - 10.9 Posit gabe >10.9 A posit gabe resul t gener ally indic ates past expos ure to Mumps virus or previ ous vacci natio n. Not Available [facility] [address] [place] [address], [address], 09/30/2019 07:08:53 09/29/19 20 09/30/2019 measl es igg Ab, serum rubeola Ab IgG <13.5 AU/mL immune >16.4 low Negat gabe <13.5 Equiv ocal 13.5 - 16.4 Posit gabe >16.4 Prese nce of antib odies to Rubeo la is presu mptiv e evide nce of immun ity excep t when acute infec tion is suspe cted. Perfo rmed at: RN - [facility] [place] [address], [place] [address] Lab Direc tor: Audrey Christian MD, Phone : [phone] Not Available [facility] [address] [place], [address], 09/30/2019 07:08:55 09/29/1909/30/2019 varic scar- zoste r igg Ab scree n, serum vz IgG 726 index immune >165 normal Negat gabe <135 Equiv ocal 135 - 165 Posit gabe >165 A posit gabe resul t gener ally indic ates expos ure to the patho gen or admin istra tion of speci fic immun oglob ulins , but it is not indic ation of activ e infec tion or stage of disea se. Not Available [facility] [address] [place], [address], 09/30/2019 07:08:57 09/25/19 20 ishih lady's test for color defic iency * No observ ation record ed. [address] Occupational Medicine [address] [facility] [address], [place], [address], 09/25/2019 16:14:14 Result Notes None recorded. Problems Name Problem SNOMED Code Status Onset Date Resolution Date Notes Provider Name and Address Organization Details Recorded Time Hypertensive disorder [id number] Active 2019 JEFFERSON Springer [address] [place], [address], [facility] 0 13:13:40 Problem Notes None recorded. Procedures Surgical History None recorded. Imaging Results Imaging Date Name Status LastModified by Organiz ation Details LastModified Time 09/25/2019 ishihara's test for color deficiency* completed [address], [place], [address], 09/25/2019 16:14:14 Procedure Notes None recorded. Medical Equipment None Reported. Allergies No known drug allergies Medications Name Sig Start Date Stop Date Status Note LastModified by Organization Details LastModified Time fluoxetine 40 mg capsule TAKE 2 CAPSULES BY MOUTH ONCE DAILY active Not Available Not Available No t Available pramipexole 1 mg tablet TAKE 1 TABLET BY MOUTH AT BEDTIME active Not Available Not Available No t Available atorvastatin 40 mg tablet TAKE 1 TABLET BY MOUTH ONCE DAILY active Not Available Not Available No t Available methocarbamol 500 mg tablet TAKE 2 TABLETS BY MOUTH THREE TIMES DAILY NEEDED FOR MUSCLE SPASM AND PAIN. active Not Available Not Available No t Available metformin 500 mg tablet TAKE 1 TABLET BY MOUTH TWICE DAILY active Not Available Not Available No t Available prednisone 10 mg tablet active Not Available Not Available No t Available atorvastatin 20 mg tablet active Not Available Not Available Not Available trazodone 50 mg tablet TAKE 1 TO 2 TABLETS BY MOUTH AT BEDTIME NEEDED FOR INSOMNIA active Not Available Not Available No t Available cefpodoxime 200 mg tablet TAKE 2 TABLETS BY MOUTH TWICE DAILY FOR 5 DAYS active Not Available Not Available No t Available FreeStyle Lancets 28 gauge USE TO TEST BLOOD GLUCOSE ONCE DAILY active Not Available Not Available No t Available lisinopril 20 mg tablet TAKE 1 TABLET BY MOUTH ONCE DAILY active Not Available Not Available No t Available sertraline 100 mg tablet active Not Available Not Available No t Available tramadol 50 mg tablet TAKE 1 TABLET BY MOUTH EVERY 6 HOURS NEEDED FOR PAIN . DO NOT EXCEEED 8 TABLETS IN A 24 HOUR PERIOD active Not Available Not Available No t Available amoxicillin 500 mg tablet active Not Available Not Availabl e Not Available pentoxifylline ER 400 mg tablet,extende d release active Not Available Not Available No t Available glimepiride 1 mg tablet TAKE 1 TABLET BY MOUTH ONCE DAILY active Not Available Not Available No t Available pramipexole 0.5 mg tablet TAKE 1 TABLET BY MOUTH ONCE DAILY active Not Available Not Available No t Available amitriptyline 25 mg tablet TAKE 1 TABLET BY MOUTH EVERY DAY active Not Available Not Available No t Available tamsulosin 0.4 mg capsule TAKE 1 CAPSULE BY MOUTH ONCE DAILY FOR 10 DAYS active Not Available Not Available No t Available cephalexin 500 mg capsule active Not Available Not Available N ot Available mirtazapine 30 mg tablet TAKE 1 TABLET BY MOUTH AT BEDTIME NEEDED FOR INSOMNIA active Not Available Not Available No t Available ropinirole 0.5 mg tablet TAKE 1 TABLET BY MOUTH ONCE DAILY AT BEDTIME active Not Available Not Available No t Available lisinopril 10 mg tablet TAKE 1 TABLET BY MOUTH ONCE DAILY active Not Available Not Available No t Available ibuprofen 400 mg tablet active Not Available Not Available No t Available hydrochlorothi azide 12.5 mg capsule TK 1 C PO QD active Not Available Not Available No t Available sertraline 25 mg tablet active Not Available Not Available No t Available omeprazole 20 mg capsule,delaye d release TAKE 1 CAPSULE BY MOUTH ONCE DAILY active Not Available Not Available No t Available hydrochlorothi azide 25 mg tablet TAKE 1 TABLET BY MOUTH ONCE DAILY active Not Available Not Available No t Available diclofenac sodium 50 mg tablet,delayed release TAKE 1 TABLET BY MOUTH 2 TIMES A DAY WITH MEALS FOR 3 DAYS, THEN TAKE NEEDED THEREAFTE R. DO NOT TAKE WITH IBUPROFEN , ALEVE, OR NAPROXEN. active Not Available Not Available No t Available mirtazapine 15 mg tablet TAKE 1 TO 2 TABLETS BY MOUTH EVERY DAY AT BEDTIME NEEDED FOR INSOMNIA active Not Available Not Available No t Available fluoxetine 20 mg capsule TAKE 3 CAPSULES BY MOUTH ONCE DAILY active Not Available Not Available No t Available sertraline 50 mg tablet TAKE 1 TABLET BY MOUTH ONCE DAILY active Not Available Not Available No t Available naproxen 500 mg tablet TK 1 T PO BID PRN active Not Available Not Available No t Available Botox 100 unit injection active Not Available Not Available No t Available cyclobenzaprin e 5 mg tablet TK 1 T PO QD PRN active Not Available Not Available No t Available Pain Reliever (acetaminophen ) 500 mg tablet active Not Available Not Available Not Available duloxetine 20 mg capsule,delaye d release active Not Available Not Available No t Available pregabalin 75 mg capsule TAKE 1 CAPSULE BY MOUTH AT BEDTIME FOR 1 WEEK, THEN TAKE 1 CAPSULE TWICE DAILY GOING FORWARD active Not Available Not Available No t Available pregabalin 100 mg capsule TAKE 1 CAPSULE BY MOUTH 3 TIMES A DAY NEEDED (MAY CAUSE SEDATION) active Not Available Not Available No t Available pregabalin 150 mg capsule active Not Available Not Available N ot Available chlorhexidine gluconate 0.12 % mouthwash active Not Available Not Available Not Available omeprazole active Not Available Not Av ailable Not Available FreeStyle Lite Meter kit USE TO TEST BLOOD GLUCOSE ONCE DAILY active Not Available Not Available No t Available FreeStyle Lite Strips USE TO TEST BLOOD GLUCOSE ONCE DAILY active Not Available Not Available No t Available baclofen 5 mg tablet TAKE 1 TO 2 TABLETS BY MOUTH THREE TIMES DAILY NEEDED FOR MUSCLE PAIN IN SHOULDER active Not Available Not Available No t Available Vitals Date Recorded Heart rate Oxygen saturation Oxygen saturation in Arterial blood by Pulse oximetry Body height Body mass index (BMI) Body weight Systolic blood pressure Diastolic blood pressure Provider Name and Address Organization Details Last Updated DateTime 0 77 /min 97 % 97 % 182.88 cm 36.6 kg/m2 959857. 94 g 138 mm[Hg] 92 mm[Hg] [place] [facility] 0 12:56:32 Social History Question Answer Notes LastModified by Organizat ion Details LastModified Time What Is Your Occupation? Unemployed, With No Work Experience In The Last 5 Years Or Earlier Or Never Worked [email or web address] Information not available 09/23/2019 Sex: Male Functional Status None recorded. Mental Status None recorded. Family History Nothing Reported. Medical History No medical history recorded. Immunizations Vaccine Type Date Status Note Provider Nam e and Address Organization Details Recorded Time MMR 10/01/2019 completed [place] Cos[place] [facility] 10/01/2019 11:03:50 Past Encounters Encounter ID Performer Location Encounter Start Date Encounter Closed Date Diagnosis/Indication Diagnosis SNOMED-CT Code Diagnosis ICD10 Code Diagnosis Note [id number] Courtney Newberry MD [facility] Primary [address] [address] 05/04/2014 13:56:49 05/04/2014 15:40:16 [id number] Ayana Cisneros [place] [address] [address] 10/27/2014 13:50:41 10/27/2014 15:05:06 [id number] Courtney Newberry MD [facility] use [address] [address] 12/20/2015 14:42:13 12/20/2015 16:09:33 [id number] Courtney Newberry MD [facility] use [address] [address] 12/23/2015 08:14:35 12/23/2015 10:17:49 [id number] Uriah Edge III, MD [facility] [address] [place] [address] 12/29/2016 14:47:57 12/29/2016 16:16:29 [id number] Caitlin Mckee MD [facility] use [address] [address] 01/04/2017 14:30:47 01/04/2017 15:34:57 [id number] Caitlin Mckee MD [facility] use [address] [address] 02/19/2017 14:28:39 02/19/2017 15:09:01 [id number] Caitlin Mckee MD [facility] use [address] [address] 02/27/2017 13:42:17 02/27/2017 14:19:01 [id number] Caitlin Mckee MD [facility] [address] [place] [address] 03/20/2017 08:34:19 03/20/2017 09:58:59 [id number] Caitlin Mckee MD [facility] [address] [address] 03/28/2017 14:10:03 03/28/2017 14:33:25 [id number] [facility] [address] [place] [address] 05/03/2017 13:50:46 05/03/2017 14:30:24 [id number] Moshe Selby MD [facility] [address] [place] [address] 05/16/2017 10:44:39 05/16/2017 12:17:16 [id number] [facility] [address] [address] 06/12/2017 09:23:16 06/12/2017 10:21:35 [id number] Moshe Selby MD [facility] [address] [place] [address] 07/01/2017 14:17:32 07/01/2017 15:06:39 [id number] [facility] [address] [address] 07/18/2017 14:11:24 07/18/2017 14:35:37 [id number] [facility] [address] [place] [address] 11/06/2018 13:22:07 11/06/2018 14:22:49 [id number] Randy Valdes MD [address] [address] 12/18/2018 08:15:02 12/18/2018 09:09:21 [id number] Caitlin Mckee MD [facility] [address] [address] 02/12/2019 14:47:00 02/12/2019 15:46:42 [id number] Caitlin Mckee MD [facility] use [address] [address] 09/16/2019 12:52:19 09/16/2019 13:09:18 [id number] JEFFERSON [facility] [address] [place] [address] 09/25/2019 12:40:40 09/25/2019 13:30:07 History and physical examination, pre-employment [id number] Z02.1 On exam NAD, no LAD, lungs clear, RRR, no M/R/G, abd benign, neuro intact, color vision normal. Urine drug screen obtained today. Test orders provided for lab. Discussed back safety and safe lifting techniques . Paperwork provided to pt. See scanned papers. Will have immunizati on records faxed to [facility] Fitting procedure [id number] 006 Z46.9 Automatic fail due to facial hair. Advised to use PAPR and where to find informatio n on [employer] intranet on proper PAPR donning and doffing education [id number] JEFFERSON [facility] [address] [place] [address] 10/01/2019 10:44:37 10/01/2019 11:08:21 Administration of measles and mumps and rubella vaccine 66370525 Z23 MMR dose 1 given in office today [id number] Caitlin Mckee MD [facility] use [address] [address] 10/19/2019 10:09:30 10/19/2019 10:37:59 [id number] Caitlin Mckee MD [facility] use [address] [address] 10/29/2019 09:18:39 10/29/2019 10:42:19 [id number] Caitlin Mckee MD [facility] use [address] [address] 01/14/2020 12:27:07 01/14/2020 12:47:31 [id number] Caitlin Mckee MD [facility] use [address] [address] 06/15/2021 10:59:09 06/15/2021 11:26:30 [id number] [facility] [address] [address] 07/18/2021 09:30:26 07/18/2021 10:04:43 [id number] [facility] [address] [address] 08/17/2021 10:25:21 08/17/2021 11:26:52 [id number] Kathy Jones CDAnyi [facility] [address] [facility] [place] [address] 09/06/2021 09:54:35 09/06/2021 11:54:06 [id number] Kathy Jones Anyi [facility] [address] [facility] [place] [address] 11/14/2021 12:36:49 11/14/2021 14:27:41 [id number] [facility] [address] [address] 11/24/2021 09:30:35 11/24/2021 09:59:53 [id number] [facility] [address] [address] 02/08/2022 12:06:01 02/08/2022 12:39:15 [id number] [facility] [address] [address] 04/30/2022 13:53:00 04/30/2022 15:26:24 [id number] [facility] [address] [address] 08/02/2022 11:45:09 08/02/2022 14:58:10 [id number] Mounika Butler MD [address] [address] 11/12/2022 09:44:31 11/12/2022 10:17:24 [id number] Nargis DiVito, [address] [address] 05/01/2023 10:20:02 05/01/2023 11:38:10 [id number] Nargis Castellanos [address] [address] 09/23/2023 10:21:27 09/23/2023 11:15:05 [id number] MD [facility] [address] [place] [address],[place] [address] 12/20/2023 14:34:50 12/20/2023 15:14:55 [id number] MD [facility] [address] [place] [address] 01/28/2024 10:39:26 01/28/2024 10:59:54 [id number] Nargis [facility]acia [address] [address] 06/10/2024 09:59:30 06/10/2024 11:38:00 Health Concerns Section Related Observation LastModified by Organization Detai ls LastModified Time None Recorded Concern Status LastModified by Organization Details LastModified Time None Recorded Advance Directives Directive None Recorded Payers Encounter Date Sequence Insurance Name Policy Number Policy Melgar Covered Member ID Melgar Member ID Guarantor Name 09/25/2019 [facility] 10/01/2019 [facility] Notes Date Note Type Note Provider Name and Address Organization Details Recorded Time 09/25/2019 text/html 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 Hx of work related injury in 2017 knee gave out and he fell down the stairs injuring his neck and shoulder. Has a herniated disc. Is able to perform all normal ADLs and job functions Hx of HTN well controlled on medication Currently on medication for GERD [facility] [address] [place], [address] 09/25/2019 13:17:07 10/01/2019 text/html Patient presents to office for MMR vaccine. He will be working for [employer]. JEFFERSON [facility] [address] [place] [address] [place], [address], [facility] 10/01/2019 13:07:49
--- OUTSIDE RECORDS SUMMARY | 2024-07-24 11:49 | XMS_ITS | Encounter Summary ---
Author Organization [facility] r Address [address] [place] [address] Phone Care Team Providers Care Panel Installer Name Role Phone Caitlin Mckee MD Unavailable [phone] Caitlin Mckee MD Primary Care Provider [phone] Janice Sloan MD Unavailable [phone] Nargis Lainez DO Unavailable [phone] Reason for Visit * Reason Onset Date Comments Prior Authorization 05/22/2022 Encounter Details Date Type Department Care Team (Late st Contact Info) Description 05/22/2022 Telephone Neurology [address] [place] [phone] [place] [address] Prior Authorization Social History Tobacco Use Types Packs/Day Years [...] AM EST documented as of this encounter Plan of Treatment Upcoming Encounters Date Type Department Care Team (Late st Contact Info) Description 07/31/2024 1:30 PM EDT Appointment Department of Radiology [address] [facility] [place] [address] 08/03/2024 10:50 AM EDT Office [facility] [address] [phone] [place] [address] 10/01/2024 3:50 PM EDT Telemedicine Department of Otolaryngology [address] [facility] [address] [place] [phone] [place] [address] documented as of this encounter Visit Diagnoses Not on filedocumented in this encounter Care Teams Panel Installer Relationship Specialty Start Date End Date Caitlin Mckee MD [address] [place] [phone] PCP - Insurance 12/12/17 08/29/22 Caitlin Mckee MD [address] [place] [phone] PCP - General Family Medicine 05/20/20 Janice Sloan MD [address] [place] [phone] PCP - Insurance 08/30/22 02/03/23 Nargis Lainez DO [address] [place] [phone] PCP - Insurance 02/04/23 documented as of this encounter
--- OUTSIDE RECORDS SUMMARY | 2024-07-24 11:49 | XMS_ITS | Encounter Summary ---
Author Organization [facility] r Address [address] [place] [address] Phone Care Team Providers Care Shared Services And Outsourcing Manager Name Role Phone Caitlin Mckee MD Unavailable [phone] Caitlin Mckee MD Primary Care Provider [phone] Janice Sloan MD Unavailable [phone] Nargis Lainez DO Unavailable [phone] Reason for Visit * Reason Onset Date Comments Clinical Question 01/18/2021 Encounter Details Date Type Department Care Team (Late st Contact Info) Description 01/18/2021 Telephone Neurology [address], [place] [address] Ayana Melgar DO Clinical Question Social History Tobacco Use Types Packs/Day [...] encounter Miscellaneous Notes * Telephone Encounter - Sagar President - 01/18/2021 10:34 AM EDT Patient Reported Reason for Call Patient presents with ??? Clinical Question patients called looking to change the appt her has now to a telemed. He has an appt now for 01/23/2021. But would like to change that to telemed. Asking for a call back to confirm. documented in this encounter Plan of Treatment Upcoming Encounters Date Type Department Care Team (Late st Contact Info) Description 07/31/2024 1:30 PM EDT Appointment Department of Radiology [address] [place] [address] 08/03/2024 10:50 AM EDT Office Visit Neurology 7[address] [facility] [address] [phone] [place] [address] 10/01/2024 3:50 PM EDT Telemedicine Department of Otolaryngology 830 [facility] [address] [place] [phone] [place] [address] documented as of this encounter Visit Diagnoses Not on filedocumented in this encounter Care Teams Shared Services And Outsourcing Manager Relationship Specialty Start Date End Date Caitlin Mckee MD [address] [place] [phone] PCP - Insurance 12/12/17 08/29/22 Caitlin Mckee MD [address] [place] [phone] PCP - General Family Medicine 05/20/20 Janice Sloan MD [address] [place] [phone] PCP - Insurance 08/30/22 02/03/23 Nargis Lainez DO [address] [place] [phone] PCP - Insurance 02/04/23 documented as of this encounter
--- OUTSIDE RECORDS SUMMARY | 2024-07-24 11:49 | XMS_ITS | Encounter Summary ---
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 Social History Tobacco Use Types Packs/Day Years [...] PM EDT Appointment Department of Radiology 840 [facility] [place] [address] 08/03/2024 10:50 AM EDT Office Visit Neurology [address] [place] [phone] [place] [address] 10/01/2024 3:50 PM EDT Telemedicine Department of Otolaryngology [address] [facility] [address] [place] [phone] [place] [address] documented as of this encounter Procedures Procedure Name Priority Date/Time Associated Diagnosis Comments XR LEFT FOOT, WEIGHT BEARING Routine 04/05/2020 12:07 PM EST 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 TECHNIQUE: 3 views left foot FINDINGS/IMPRESSION: No fracture. Mild pes planus. The joint spaces are preserved. The soft tissues are intact. I personally reviewed the study and agree with the dictated report. Resulting Agency Comment Dictated By: ABEBE ROBBINS M.D. ?Date: 04/05/2020 02:43 PM Electronically Signed By: JARETH WADSWORTH M.D. ?Date: 04/05/2020 02:43 PM Procedure Note Jareth Wadsworth MD - 04/05/2020 EXAMINATION: LEFT FOOT, WEIGHT BEARING HISTORY: pain on range of motion left 1st MPJ COMPARISON: No prior studies are listed for comparison. TECHNIQUE: 3 views left foot FINDINGS/IMPRESSION: No fracture. Mild pes planus. The joint spaces are preserved. The soft tissues are intact. I personally reviewed the study and agree with the dictated report. 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
--- OUTSIDE RECORDS SUMMARY | 2024-07-24 11:49 | XMS_ITS | Encounter Summary ---
Author Organization [facility] r Address [address] [place] [address] Phone Care Team Providers Care Small Parts Assembler Name Role Phone Caitlin Mckee MD Unavailable [phone] Caitlin Mckee MD Primary Care Provider [phone] Janice Sloan MD Unavailable [phone] Nargis Lainez DO Unavailable [phone] Reason for Visit * Reason Onset Date Comments Appointment 05/08/2022 Encounter Details Date Type Department Care Team (Late st Contact Info) Description 05/08/2022 Telephone Neurology [address] [facility] [place] [address] [place] [address] Appointment (/) Social History Tobacco Use Types Packs/Day Years [...] PM EDT Appointment Department of Radiology [address] [facility] [address] [place] [address] 08/03/2024 10:50 AM EDT Office Visit [facility] [address] [phone] [place] [address] 10/01/2024 3:50 PM EDT Telemedicine Department of Otolaryngology 830 [facility] [address] [place] [phone] [place] [address] documented as of this encounter Visit Diagnoses Not on filedocumented in this encounter Care Teams Small Parts Assembler Relationship Specialty Start Date End Date Caitlin Mckee MD [address] [place] [phone] PCP - Insurance 12/12/17 08/29/22 Caitlin Mckee MD [address] [place] [phone] PCP - General Family Medicine 05/20/20 Janice Sloan MD [address] [place] [phone] PCP - Insurance 08/30/22 02/03/23 Nargis Lainez DO [address] [place] [phone] PCP - Insurance 02/04/23 documented as of this encounter
--- OUTSIDE RECORDS SUMMARY | 2024-07-24 11:49 | XMS_ITS | Encounter Summary ---
Author Organization [facility] r Address 1 [place] [address] Phone Care Team Providers Care Masonry Teacher Name Role Phone Caitlin Mckee MD Unavailable [phone] Caitlin Mckee MD Primary Care Provider Janice Sloan MD Unavailable [phone] Nargis Lainez DO Unavailable [phone] Encounter Details Date Type Department Care Team (Late st Contact Info) Description 09/23/2018 Transcribe Orders SHA Laura Guardado MD [address] [place] [address] [place] [phone] Procreative management (Primary Dx) Social History Tobacco Use Types Packs/Day Years [...] PM EDT Appointment Department of Radiology [address] [place], [place] [phone] 08/03/2024 10:50 AM EDT Office Visit Neurology 5 [facility] [place] [address] [place] [address] 10/01/2024 3:50 PM EDT Telemedicine Department of Otolaryngology [address] [place] [phone] [place] [address] documented as of this encounter Results * Syphilis IgG/IgM Screen w/ Reflex to RPR (09/23/2018 8:47 AM EDT) Syphilis IgG/IgM Screen w/ Reflex to RPR NON-REACTI VE NON-REACTI VE 09/23/2018 10:25 AM EDT [facility] Comment:No serologic evidenc e of syphilis infection. If recent exposure is suspected, redraw sample in 2 to 4 weeks and repeat testing. Blood 09/23/2018 8:47 AM EDT 09/23/2018 8:49 AM EDT Laura Moyer MD LAB BLOOD ORDERABLES [facility]<9>CLIA [id number]<9>[place] [address], * HEPATITIS B SURFACE ANTIGEN (09/23/2018 8:47 AM EDT) Hep B Surface Ag NON-REACTI VE NON-REACTI VE 09/23/2018 10:21 AM EDT [facility] 09/23/2018 8:47 AM EDT 09/23/2018 8:49 AM EDT Laura Moyer MD LAB BLOOD ORDERABLES [facility]<9>CLIA [id number]<9>[place] [address], * HIV-1/2 AG/AB Initial Screening (09/23/2018 8:47 AM EDT) HIV Ag/Ab Combined Qualitative NON-REACTI VE NON-REACT GABE 09/23/2018 10:22 AM EDT [facility] 09/23/2018 8:47 AM EDT 09/23/2018 8:50 AM EDT Laura Moyer MD LAB BLOOD ORDERABLES [facility]<9>CLIA [id number]<9>[address] * HCV Ab reflex to Confirmatory/Viral load and Genotype (09/23/2018 8:47 AM EDT) Hepatitis C Antibody NON-REACTI VE NON-REACTI VE 09/23/2018 10:21 AM EDT [facility] 09/23/2018 8:47 AM EDT 09/23/2018 8:49 AM EDT Laura Moyer MD LAB BLOOD ORDERABLES [facility]<9>CLIA [id number]<9>[address] documented in this encounter Visit Diagnoses Diagnosis Procreative management- Primary documented in this encounter Care Teams Masonry Teacher Relationship Specialty Start Date End Date Caitlin Mckee MD [address] [place] [phone] PCP - Insurance 12/12/17 08/29/22 Caitlin Mckee MD [address] [place] [phone] PCP - General Family Medicine 05/20/20 Janice Sloan MD [address] [place] [phone] PCP - Insurance 08/30/22 02/03/23 Nargis Lainez DO [address] [place] [phone] PCP - Insurance 02/04/23 documented as of this encounter
--- OUTSIDE RECORDS SUMMARY | 2024-07-24 11:49 | XMS_ITS | Encounter Summary ---
Author Organization [facility] r Address 1 [place] [address] Phone Care Team Providers Care Home Staging Specialist Name Role Phone Caitlin Mckee MD Primary Care Provider [phone] Nargis Lainez DO Unavailable [phone] Reason for Visit * Reason Onset Date Comments Botulinum Toxin Injection 03/28/2023 Encounter Details Date Type Department Care Team (Late st Contact Info) Description 03/28/2023 Telephone Neurology [address], [place] [phone] [place] [address] Botulinum Toxin Injection Social History Tobacco Use [...] encounter Miscellaneous Notes * Telephone Encounter - Rashmi Gilbert - 03/28/2023 12:46 PM EST Patient Reported Reason for Call Patient presents with ??? Botulinum Toxin Injection Hi, Pt's called to r/s Botox appt, please. Call back # [phone] Thank you. documented in this encounter Plan of Treatment Upcoming Encounters Date Type Department Care Team (Late st Contact Info) Description 07/31/2024 1:30 PM EDT Appointment Department of Radiology [address] [place] [address] 08/03/2024 10:50 AM EDT Office Visit Neurology 725 [facility] [address] [place] [phone] [place] [address] 10/01/2024 3:50 PM EDT Telemedicine Department of Otolaryngology 830 [facility] [address] [place] [phone] [place] [address] documented as of this encounter Visit Diagnoses Not on filedocumented in this encounter Care Teams Home Staging Specialist Relationship Specialty Start Date End Date Caitlin Mckee MD [address] [place] [phone] PCP - General Family Medicine 05/20/20 Nargis Lainez DO [address] [place] [phone] PCP - Insurance 02/04/23 documented as of this encounter
--- OUTSIDE RECORDS SUMMARY | 2024-07-24 11:49 | XMS_ITS | Clinical Summary ---
Author Organization [facility] Address [address] [place] [address] Care Team Providers Care Log Roller Name Role Phone Nargis Lainez DO Primary Care Provider [phone] Allergies Active Allergy Reactions Criticality Noted Date [...] Active Active Problems No known active problems Family History Medical History Relation Name Comments No Known Problems Father No Known Problems Mother Relation Name Status Comments Father Alive Mother Alive Social History Tobacco Use Types Packs/Day Years [...] 03/19/2017 1:55 PM EST Plan of Treatment Health Maintenance Due Date Last Done Comments HIV Screening 1984 Hepatitis C Screening 1984 Medicare AWV 1985 Varicella Vaccines (1 of 2 - 13+ 2-dose series) 1997 Hepatitis B Vaccines (1 of 3 - 19+ 3-dose series) 2003 COVID-19 Vaccine ( season) 2023 06/07/2021, 01/05/2021, 12/15/2020 Alcohol/Substance Use Screening 04/15/2024 Depression Screening and Follow-Up 04/15/2024 Social Drivers of Health Annual Screening 04/15/2024 DTaP,Tdap,and Td Vaccines (2 - Td or Tdap) 10/27/2024 10/27/2014 Influenza Vaccine (Season Ended) 2024 05/01/2023, 02/08/2022, 06/17/2020, Additional history exists Tobacco Screening 04/15/2042 01/29/2024 RSV Vaccine (60+ years old and patients) (1 - 1-dose 75+ series) 2059 Pneumococcal Vaccine: Pediatric (0-5 Years) and At-Risk Patients (6-50 Years) Aged Out No longer eligible based on patient's age to complete this topic Insurance MEDICARE [facility] Care Teams Log Roller Relationship Specialty Start Date End Date Nargis Lainez DO [address] [place] [address] [place]UN[place] [phone] PCP - General Family Medicine 01/26/24
--- OUTSIDE RECORDS SUMMARY | 2024-07-24 11:49 | XMS_ITS | Encounter Summary ---
Author Organization [facility] r Address [address] [place] [address] Phone Care Team Providers Care Cash Controller Name Role Phone Caitlin Mckee MD Unavailable Caitlin Mckee MD Primary Care Provider [phone] Janice Sloan MD Unavailable [phone] Nargis Lainez DO Unavailable [phone] Reason for Visit * Reason Onset Date Comments Botulinum Toxin Injection 06/21/2022 Debra called looking to have patient scheduled for botox ,please call the patient back [phone] Encounter Details Date Type Department Care Team (Late st Contact Info) Description 06/21/2022 Telephone Neurology [address] [place] [address], [place] [address] Ayana Melgar DO Botulinum Toxin Injection (Debra called looking to have patient scheduled for botox ,please call the patient back [phone]) Social History Tobacco Use Types Packs/Day Years [...] suspected to have Coronavirus/COVID-19? No / Unsure 06/15/2022 10:18 AM EST documented as of this encounter Miscellaneous Notes * Telephone Encounter - Huy Crow - 06/21/2022 4:33 PM EST Patient Reported Reason for Call Patient presents with ??? Botulinum Toxin Injection Debra called looking to have patient scheduled for botox ,please call the patient back [phone] documented in this encounter Plan of Treatment Upcoming Encounters Date Type Department Care Team (Late st Contact Info) Description 07/31/2024 1:30 PM EDT Appointment Department of Radiology 840 [place] [address] 08/03/2024 10:50 AM EDT Office Visit Neurology 725 [facility] [address], [place] [phone] [place] [address] 10/01/2024 3:50 PM EDT Telemedicine Department of Otolaryngology 830 [facility] [address] [place] [phone] [place] [address] documented as of this encounter Visit Diagnoses Not on filedocumented in this encounter Care Teams Cash Controller Relationship Specialty Start Date End Date Caitlin Mckee MD [address] [place] [phone] PCP - Insurance 12/12/17 08/29/22 Caitlin Mckee MD [address] [place] [phone] PCP - General Family Medicine 05/20/20 Janice Sloan MD [address] [place] [phone] PCP - Insurance 08/30/22 02/03/23 Nargis Lainez DO [address] [place] [phone] PCP - Insurance 02/04/23 documented as of this encounter
== END 2024-07-24 11:47 | disposition home or self-care (01) ==
LOC: HO.HNS 10:53
PROVIDERS: PCP Family Medicine; Referring Provider Family Medicine; Visit Provider Physician Assistant
DX: M54.9 Dorsalgia, unspecified (principal)
CPT/HCPCS: 99204

== ENCOUNTER → 2024-07-24 10:52 | Outpatient (BNVA) | payer MEDICARE, MEDICAID, SELFPAY | PROVIDERS: PCP Family Medicine; Referring Provider Family Medicine; Visit Provider Physician Assistant | DX: M54.9 Dorsalgia, unspecified (principal) | CPT/HCPCS: 99202 ==